=== PATIENT | female | born 1990 | race Caucasian/White ===

== ENCOUNTER 2017-06-20 12:40 | Emergency (ER) | payer OTHER ==
[2017-06-20 12:56] VITALS: BP 105/55; PULSE 90; TEMP 98.2; BMI 61.6
[2017-06-20] MEDS ORDERED: ALBUTEROL SO4 2.5/IPRATROPIUM 0.5 INH SOL 3 ML VIAL.NEB. NEB ONE ×2 (13:52→13:53)
--- NOTE | 2017-06-20 13:57 | PDOC ---
History of Present Illness - General Chief Complaint: Cold Symptoms Stated Complaint: COUGHING Time Seen by Provider: 06/20/17 13:42 History Source: Patient Exam Limitations: No Limitations - History of Present Illness Initial Comments: 06/20/17 13:52 Patient is a [27-year-old female, no significant medical history currently on no medication presents for evaluation of tactile fever, moist productive cough with bronchospasm and right ear pain. Patient denies any nausea vomiting or diarrhea, denies headache, no body chills. ] Past Medical History: [Denies]. Allergies: No known allergies Medications: [None] Family History: Non-contributory Social History: Denies smoking, alcohol use, or IVDU Review of Systems GENERAL/CONSTITUTIONAL: [Fever, no chills. No weakness. No weight change.] HEAD, EYES, EARS, NOSE AND THROAT: [No change in vision. No ear pain or discharge. No sore throat. ] CARDIOVASCULAR: [No chest pain or shortness of breath.] RESPIRATORY: [Cough no wheezing no hemoptysis] GASTROINTESTINAL: [No nausea, vomiting, diarrhea or constipation. No rectal bleeding.] GENITOURINARY: [No dysuria, frequency, or change in urination.] MUSCULOSKELETAL: [No joint or muscle swelling or pain. No neck or back pain.] SKIN AND BREASTS: [No rash or easy bruising.] NEUROLOGIC: [No headache, vertigo, loss of consciousness, or loss of sensation.] PSYCHIATRIC: [No depression or anxiety.] ENDOCRINE: [No increased thirst. No abnormal weight change.] HEMATOLOGIC/LYMPHATIC: [No anemia, easy bleeding, or history of blood clots.] ALLERGIC/IMMUNOLOGIC: [No hives or skin allergy. No latex allergy.] Physical Exam: GENERAL: [The patient is awake, alert, and fully oriented, in no acute distress. ] EYES: [Pupils equal, round and reactive to light, extraocular movements intact, sclera anicteric, conjunctiva clear.] ENT: [Ears normal, nares patent, oropharynx clear without exudates. Moist mucous membranes. No uvula deviation] NECK: [Normal range of motion, supple without lymphadenopathy, JVD, or masses.] LUNGS: [Breath sounds with expiratory wheezes, no rhonchi,. Decreased at the bases.] HEART: [Regular rate and rhythm, normal S1 and S2 without murmur, rub or gallop. ] ABDOMEN: [Soft, nontender, normoactive bowel sounds. No guarding, no rebound. No masses. No bruising or abrasions] MUSCULOSKELETAL: [Normal range of motion, no edema. No clubbing or cyanosis. No cords, erythema, or tenderness. No CVA Tenderness with fist.] NEUROLOGICAL: [Cranial nerves II through XII grossly intact. Normal speech, normal gait.] SKIN: [Warm, Dry, normal turgor, no rashes or lesions noted.] Past History - Past Medical History Allergies/Adverse Reactions: Allergies Allergy/AdvReac Type Severity Reaction Status Date / Time No Known Allergies Allergy Verified 06/20/17 12:52 Home Medications: Ambulatory Orders No Home Medications 0 dose .ROUTE UTDICT 09/10/13 Albuterol Sulfate Inhaler - [Ventolin HFA Inhaler -] 1 - 2 inh PO Q4H #1 inhaler 06/20/17 Azithromycin [Zithromax 250mg Tablets -] 250 mg PO UTDICT #6 tab 06/20/17 Asthma: No Cancer: No Cardiac Disorders: No COPD: No DVT: No Diabetes: No HTN: No Seizures: No Thyroid Disease: No - Immunization History Immunization Up to Date: Yes - Suicide/Smoking/Psychosocial Hx Smoking Status: No Smoking History: Never smoked Have you smoked in the past 12 months: No Number of Cigarettes Smoked Daily: 0 Information on smoking cessation initiated: No Hx Alcohol Use: No Drug/Substance Use Hx: No Substance Use Type: None Hx Substance Use Treatment: No *Physical Exam - Vital Signs Last Vital Signs Temp Pulse Resp BP Pulse Ox 98.2 F 90 17 105/55 97 06/20/17 12:52 06/20/17 12:52 06/20/17 12:52 06/20/17 12:52 06/20/17 12:52 Medical Decision Making - Medical Decision Making 06/20/17 13:55 A/P: Patient with intermittent tactile fever, moist productive cough, right ear pain. Symptoms for 3 days . No evidence of otitis, patient with clinical signs of bronchitis Combivent given will DC patient on albuterol and azithromycin, follow-up with PMD in 2 days if symptoms do not start to resolve. I discussed the physical exam findings, ancillary test results and final diagnoses with the patient. I answered all of the patient's questions. The patient was satisfied with the care received and felt comfortable with the discharge plan and treatment plan. The patient will call to arrange follow-up and will return to the Emergency Department with any new, persistent or worsening symptoms. *DC/Admit/Observation/Transfer Diagnosis at time of Disposition: Bronchitis - Discharge Dispostion Disposition: HOME Condition at time of disposition: Stable Admit: No - Prescriptions Prescriptions: Albuterol Sulfate Inhaler - [Ventolin HFA Inhaler -] 1 - 2 inh PO Q4H #1 inhaler Azithromycin [Zithromax 250mg Tablets -] 250 mg PO UTDICT #6 tab - Referrals Referrals: Sindy Ayala [Primary Care Provider] - - Patient Instructions Printed Discharge Instructions: DI for Acute Bronchitis Additional Instructions: Keep head of bed elevated 45 when sleeping Antibiotics as ordered until completed Cool air humidifier Albuterol as needed for wheezing and bronchospasm every 4 hours Motrin for fever greater than 101 Followup in the primary care doctor's office in 2 days for evaluation. If any respiratory distress, increased cough, inability to drink, increased wheezing please return immediately to emergency department. - Post Discharge Activity Forms/Work/School Notes: Back to Work
== END 2017-06-20 14:07 | disposition home or self-care (01) ==
LOC: JERFT 12:40
PROC: 3E0F7GC Introduction of Other Therapeutic Substance into Respiratory Tract, Via Natural or Artificial Opening (ICD-10-PCS; principal; 2017-06-20)
DX: J40 Bronchitis, not specified as acute or chronic (principal)
CPT/HCPCS: 94640; 99281-25

== ENCOUNTER 2017-09-02 09:02 | Emergency (ER) | payer OTHER ==
[2017-09-02 09:18] VITALS: BP 135/70; PULSE 80; TEMP 98; BMI 27.2
[2017-09-02] MEDS ORDERED: ALBUTEROL SO4 2.5/IPRATROPIUM 0.5 INH SOL 3 ML VIAL.NEB. NEB ONE (09:43)
--- NOTE | 2017-09-02 09:43 | PDOC ---
History of Present Illness - General Chief Complaint: Cold Symptoms Stated Complaint: COUGH Time Seen by Provider: 09/02/17 09:28 History Source: Patient Exam Limitations: No Limitations - History of Present Illness Timing/Duration: reports: getting worse, week Severity: reports: mild, moderate Associated Symptoms: reports: chest pain/soreness, cough, dizziness, facial pain , headache, nasal congestion, sore throat (worse in the morning ) Past History - Travel Traveled outside of the country in the last 30 days: No Close contact w/someone who was outside of country & ill: No - Past Medical History Allergies/Adverse Reactions: Allergies Allergy/AdvReac Type Severity Reaction Status Date / Time No Known Allergies Allergy Verified 09/02/17 09:13 Home Medications: Ambulatory Orders Benzonatate [Tessalon Pearls -] 100 mg PO TID #21 capsule 08/26/17 Albuterol Sulfate Inhaler - [Ventolin HFA Inhaler -] 1 - 2 inh PO Q4H #1 inhaler 09/02/17 predniSONE [Deltasone -] 20 mg PO BID #8 tablet 09/02/17 Asthma: No Cancer: No Cardiac Disorders: No COPD: No DVT: No Diabetes: No HTN: No Seizures: No Thyroid Disease: No - Immunization History Immunization Up to Date: Yes - Suicide/Smoking/Psychosocial Hx Smoking Status: No Smoking History: Never smoked Have you smoked in the past 12 months: No Number of Cigarettes Smoked Daily: 0 Information on smoking cessation initiated: No Hx Alcohol Use: No Drug/Substance Use Hx: No Substance Use Type: None Hx Substance Use Treatment: No Review of Systems - Review of Systems Able to Perform ROS?: Yes Is the patient limited Persian proficient: Yes Constitutional: Yes: Symptoms Reported, See HPI, Chills, Malaise HEENTM: Yes: Symptoms Reported, See HPI, Nose Congestion, Throat Pain Respiratory: Yes: Symptoms reported, See HPI, Cough (moist , intermittant green phlegm) ABD/GI: No: Symptoms Reported : No: Symptoms Reported All Other Systems: Reviewed and Negative *Physical Exam - Vital Signs Last Vital Signs Temp Pulse Resp BP Pulse Ox 98.0 F 80 18 135/70 100 09/02/17 09:13 09/02/17 09:13 09/02/17 09:13 09/02/17 09:13 03/30/18 09:13 - Physical Exam General Appearance: Yes: Nourished, Appropriately Dressed, Apparent Distress, Mild Distress HEENT: positive: CHRISTOPH, TMs Normal (congested ), Pharynx Normal (no redness / swellign / or exudsate/ some posterior sinus drainage noted ), Nasal Congestion , Rhinorrhea, Sinus Tenderness Neck: positive: Supple. negative: Tender Respiratory/Chest: positive: Lungs Clear (but coarzse ). 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 Much improved after DuoNeb, we will treat with prednisone and inhalers. No evidence of bacterial infection therefore will withhold antibiotics. Encouraged follow-up with PMD as this is her third visit in 2 months for same type of upper respiratory issue for more thorough evaluation *DC/Admit/Observation/Transfer Diagnosis at time of Disposition: Bronchitis - Discharge Dispostion Disposition: HOME Condition at time of disposition: Stable Admit: No - Referrals - Patient Instructions Printed Discharge Instructions: DI for Viral Upper Respiratory Infection -- Adult Additional Instructions: Rest, drink lots of fluids: Teas, water, soups, Pedialyte Saltwater gargles Steamy showers/seem to face break up mucus Avoid contact with others until fevers and cough resolved Lots of handwashing and good hygiene Continue [id number] medications for symptomatic relief Tylenol or Motrin for fever and pain Continue albuterol nebulizers every 4-6 hours for the next 2 days then as needed for continued cough Prednisone as directed until completed Followup with private physician in one to 2 days Return to emergency department / pediatric hospital for worsened symptoms, fevers, dehydration - Post Discharge Activity Forms/Work/School Notes: Back to Work
[2017-09-02] MEDS ORDERED: predniSONE 20 MG TABLET (UD) PO ONE (10:04)
[2017-09-02] MEDS ORDERED: predniSONE 20 MG TABLET (UD) ONE (10:10)
== END 2017-09-02 10:19 | disposition home or self-care (01) ==
LOC: JERFT 09:02
PROC: 3E0F7GC Introduction of Other Therapeutic Substance into Respiratory Tract, Via Natural or Artificial Opening (ICD-10-PCS; principal; 2017-09-02)
DX: J40 Bronchitis, not specified as acute or chronic (principal)
CPT/HCPCS: 94640; 99281-25

== ENCOUNTER 2017-10-02 11:23 | Emergency (ER) | payer OTHER | END 2017-10-02 14:32 | disposition home or self-care (01) | LOC: JER 11:23 | DX: R21 Rash and other nonspecific skin eruption (principal) | CPT/HCPCS: 87070; 87430; 99281-25 ==